=== PATIENT | male | born 1945 | race Caucasian/White ===

== ENCOUNTER 2017-06-20 07:01 | Emergency (ER) | payer MEDICARE ==
--- NOTE | 2017-06-20 07:17 | UC ---
Ear Complaint HPI - HPI Summary HPI Summary: 71 YEAR OLD MALE PRESENTS WITH COMPLAIN OF BILATERAL EAR PAIN/FULLNESS. HE ALSO HAS A ENLARGED MASS ON THE RIGHT SIDE OF HIS NECK AND IS SCHEDULED FOR A CT SCAN. - History of Current Complaint Stated Complaint: EAR ISSUE Time Seen by Provider: 06/20/17 07:12 - Allergies/Home Medications Allergies/Adverse Reactions: Allergies Allergy/AdvReac Type Severity Reaction Status Date / Time No Known Allergies Allergy Verified 12/04/14 09:12 Home Medications: Home Medications Levothyroxine TAB* [Synthroid 100 MCG TAB*] 06/20/17 [History] PMH/Surg Hx/FS Hx/Imm Hx - Surgical History Surgical History: Yes Surgery Procedure, Year, and Place: Rt KNEE - 2 SURGERIES (SECOND SURG WAS A REPLACEMENT) - Social History Alcohol Use: None Substance Use Type: None Amount Used/How Often: ??? X ? When Did the Patient Quit Smoking/Using Tobacco: 1970'S Review of Systems Constitutional: Negative Skin: Negative Eyes: Negative ENT: Ear Ache, Other Respiratory: Negative Cardiovascular: Negative Gastrointestinal: Negative Genitourinary: Negative Motor: Negative Neurovascular: Negative Musculoskeletal: Negative Neurological: Negative Psychological: Negative All Other Systems Reviewed And Are Negative: Yes Physical Exam Triage Information Reviewed: Yes Eye Exam: Normal ENT: Positive: Other: - BILATERAL CERUMEN IMPACTION Dental Exam: Normal Neck exam: Normal Neck: Positive: 1 Respiratory Exam: Normal Cardiovascular Exam: Normal Abdominal Exam: Normal Musculoskeletal Exam: Normal Neurological Exam: Normal Psychological Exam: Normal Skin Exam: Normal Ear Complaint Course/Dx - Differential Dx/Diagnosis Provider Diagnoses: CERUMEN IMPACTION Discharge - Discharge Plan Condition: Stable Disposition: HOME Prescriptions: Neomyc/Polym/HC 1% OTIC SUSP* [Cortisporin Otic Susp 1%*] 4 drop BOTH EARS QID # 1 btl Patient Education Materials: Cerumen Impaction (ED) Referrals: No Primary Care Phys,NOPCP [Primary Care Provider] - If Needed
[2017-06-20 07:18] VITALS: BP 144/88
[2017-06-20] MEDS ORDERED: Docusate LIQ* 100 MG/10 ML UDC PO ONE (07:29)
[2017-06-20] MEDS ORDERED: Carbamide Peroxide 6.5% OTIC* 15 ML BTL BOTH EARS ONE (07:37)
== END 2017-06-20 08:07 | disposition home or self-care (01) ==
LOC: UCEAST 07:01
DX: H61.23 Impacted cerumen, bilateral (principal); Z96.651 Presence of right artificial knee joint; Z87.891 Personal history of nicotine dependence
CPT/HCPCS: 69210; 99213; A9270-GY; G0463

== ENCOUNTER 2018-01-24 12:59 | Inpatient (IN) | payer MEDICARE ==
[2018-01-24] MEDS ORDERED: Ketorolac INJ* 30 MG/ML 1 ML VIAL IV ONE (13:14)
[2018-01-24] MEDS ORDERED: Diltiazem DRIP* 100 MG/100 ML ADDV.BAG IVPB ONE (13:14)
[2018-01-24] MEDS ORDERED: NS 0.9% 1000 ML* 1,000 ML IV ONE (13:14)
[2018-01-24 13:30] LABS: ABS Basophils 0 10^3/ul (0-0.2); ABS Eosinophils 0 10^3/ul (0-0.6); ABS Lymphocytes 0.2 10^3/ul (1.0-4.8); ABS Monocytes 0.3 10^3/ul (0-0.8); ABS Neutrophils 5.6 10^3/ul (1.5-7.7); ABS Nucleated RBC 0 10^3/ul; Eosinophil % 0 % (0-6); Hematocrit 37 % (42-52); Hemoglobin 12.5 g/dl (14.0-18.0); Mean Corpuscular HGB Conc 34 g/dl (31-36); Mean Corpuscular Hemoglobin 30 pg (27-31); Mean Corpuscular Volume 90 fL (80-94); Mean Platelet Volume 8 um3 (7.4-10.4); Nucleated Red Blood Cells % 0.1; Platelet Count 356 10^3/ul (150-450); Red Blood Count 4.12 10^6/ul (4.0-5.4); Red Cell Distribution Width 17 % (10.5-15); White Blood Count 6.1 10^3/ul (3.5-10.8)
[2018-01-24 13:31] LABS: INR 2.93 (0.77-1.02)
--- NOTE | 2018-01-24 13:32 | RAD ---
Indication: Respiratory distress. Shortness of breath. History of head and neck squamous cell carcinoma. Comparison: December 06, 2017 PET/CT. October 08, [address] Technique: Upright AP 1310 hours Report: RIGHT greater than LEFT basilar airspace consolidation without discrete nodules. Negative for volume loss to favor atelectasis. Grossly clear pleural spaces. The heart, pulmonary vasculature, and mediastinal contours are unremarkable. IMPRESSION: RIGHT greater than LEFT basilar airspace consolidation new on the LEFT and similar on the RIGHT to the December 06, 2017 PET/CT. Given history of head and neck malignancy consider aspiration pneumonia.
[2018-01-24 13:34] LABS: EGFR Non-African American 25.2 (>60)
[2018-01-24] MEDS: Diltiazem IV VIAL* 125 MG in NS 0.9% 100 ML* 100 ML IV ONE (14:31)
[2018-01-24] MEDS ORDERED: Piperacillin/Tazobac ADVAN(*) 3.375 GM in NS 0.9% 100 ML* 100 ML IVPB ONE (15:42)
[2018-01-24] MEDS ORDERED: Zosyn per Pharmacy* NOTE FOLLOW UP SCH (16:00)
--- NOTE | 2018-01-24 17:07 | RAD ---
INDICATION: Altered mental status COMPARISON: MRI of the brain dated July 21, 2017 TECHNIQUE: Contiguous axial sections of the brain were obtained from the skull base to the vertex without contrast. FINDINGS: The ventricles, cisterns and sulci are within normal limits. The cooper-white matter differentiation is adequately maintained and there is no sulcal effacement. No significant focal abnormality or mass effect is present. There is no evidence for intracranial hemorrhage. No significant focal osseous abnormality is present. The visualized portion of the paranasal sinuses appear clear. There are bilateral mastoid air cell effusion similar in appearance to the MRI of the brain. IMPRESSION: 1. No CT apparent acute intracranial abnormality. 2. Chronic bilateral mastoid air cell effusions.
--- NOTE | 2018-01-24 19:21 | PN ---
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 Presents obtruded, hypotensive and hypoxic. Subjective: Responding to voice, not in pain. Not able to answer questions. Cancer History: 1. Sq Cell Head and neck - Dx 02/2014 [id number], P16 negative. - Cis/XRT 03/2014, CR by PET - 05/2017 Recurrence floor of mass - 07/2017 - 08/2017 Cetuximab/XRT - 11/2017 Nivolumab 2. RCC. Nephrectomy 01/2016, Stage 1B, grade 1 RCC. Medication: Famotidine (Pepcid Iv*) 20 mg IV DAILY [facility] Hydrocortisone Sodium Succinate (Solu-Cortef*) 100 mg IV Q12H SUKH Diltiazem HCl 125 mg/ Sodium (Chloride) 125 mls @ 10 mls/hr IV ED ONCE ONE; 10 MG/HR PRN Reason: Protocol Stop: 01/25/18 02:29 Last Admin: 01/24/18 14:31 Dose: 10 mls/hr Lactated Ringer's (Lactated Ringers 1000 Ml Bag*) 1,000 mls @ 75 mls/hr IV PER RATE [facility] Last Admin: 01/24/18 17:45 Dose: 75 mls/hr Levothyroxine Sodium (Synthroid Inj*) 37.5 mcg IV DAILY [facility] Pharmacy Consult (Zosyn Per Pharmacy*) 1 note FOLLOW UP .ZOSYN PER PHARMACY [facility] Objective: [] Vital Signs Temp Pulse Resp BP Pulse Ox 96.8 F 110 29 108/73 100 01/24/18 16:30 01/24/18 19:02 01/24/18 19:02 01/24/18 17:47 01/24/18 19:02 HEENT: Edema neck, no discrete mass. High flow mask. Wheezing ant, poor air movement and crackles post RRR S12 + Abd distension, no HSM Ext no edema, warm Neuro- responding go voice, moving ext x 4 CXR - basilar infiltrate Assessment: []Presents hypoxic and non responsive. Etiology of decompensation unclear. He had new infiltrate on PET in November and differential includes aspiration, PE is possible though therapeutic on Coumadin, immune mediated hypophysitis, sepsis from pneumonia or UTI. Plan: []1. Agree with current respiratory support and DNR/DNI. I am unsure if he is currently BENSON malignancy or has residual disease in floor of mouth. 2. US LE 3. Check random Coritsol and will send testosterone, stress dose steroids 4. hydration 5. Carlton catheter 6. Will follow in ICU and will be oncology service on transfer. Dr. Pate, his primary oncologist, to round in am.
[2018-01-24] MEDS: Hydrocortisone INJ* 100 MG VIAL IV SCH (19:45)
--- NOTE | 2018-01-24 20:12 | ED ---
Gilda Nayak Gabriel, scribed for Iam Del Rosario MD on 01/24/18 at 1332 . Respiratory - HPI Summary HPI Summary: This patient is a 72 year old M BIBA to [facility] in respiratory distress. Pt is minimally responsive and only opens his eyes if his name is yelled loudly. EMS reports he has a history of mouth and tongue cancer and there is a concern for pulmonary edema. 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 Hx COPD. Pt was 122/65 on arrival. LEVEL 5 Caveat: HPI limited due to the patient being verbally non responsive. - History of Current Complaint Chief Complaint: EDShortnessOfBreath Stated Complaint: RESPIRATORY DISTRESS Hx Obtained From: Patient Onset/Duration: Still Present Timing: Constant Initial Severity: Severe Current Severity: Severe Associated Signs and Symptoms: Fever - Allergy/Home Medications Allergies/Adverse Reactions: Allergies Allergy/AdvReac Type Severity Reaction Status Date / Time No Known Allergies Allergy Verified 07/19/17 11:39 Home Medications: Home Medications Atropine 1% OPHTH.GABRIEL* 1 drop PO BID PRN 01/24/18 [History Confirmed 01/24/18] Warfarin TAB(*) [Coumadin TAB(*)] 7.5 mg PO .SUTUTHSA 01/24/18 [History Confirmed 01/24/18] PMH/Surg Hx/FS Hx/Imm Hx Endocrine/Hematology History: Reports: Hx Thyroid Disease Denies: Hx Diabetes Cardiovascular History: Reports: Hx Hypertension, Other Cardiovascular Problems/ Disorders - ATRIAL FIBRILLATION Denies: Hx Pacemaker/ICD History: Denies: Hx Renal Disease Musculoskeletal History: Reports: Other Musculoskeletal History - knee surgery Sensory History: Reports: Hx Hearing Aid Denies: Hx Contacts or Glasses Opthamlomology History: Denies: Hx Contacts or Glasses Psychiatric History: Denies: Hx Panic Disorder - Cancer History Cancer Type, Location and Year: TONSIL CANCER - RENAL CELL CARCINOMA. Hx Chemotherapy: Yes Hx Radiation Therapy: Yes - Surgical History Surgery Procedure, Year, and Place: Rt KNEE - 2 SURGERIES (SECOND SURG WAS A REPLACEMENT) W/ A TITANIUM STONEY. 07/08/17 - BIOPSY OF MASS ON NECK - Rt SIDE - MALIGNANT SQUAMOUS CELL Hx Anesthesia Reactions: No Infectious Disease History: Unable to Obtain/Confirm Infectious Disease History: Denies: Hx Clostridium Difficile, Hx Hepatitis, Hx Human Immunodeficiency Virus (HIV), Hx of Known/Suspected MRSA, Hx Shingles, Hx Tuberculosis, Hx Known/ Suspected VRE, Hx Known/Suspected VRSA, History Other Infectious Disease, Traveled Outside the [place] in Last 30 Days - Social History Alcohol Use: Rare Substance Use Type: Reports: None Smoking Status (MU): Never Smoked Tobacco Amount Used/How Often: ??? X ? Have You Smoked in the Last Year: No - Additional Comments History Additional Comments: LEVEL 5 Caveat: exam limited due to the patient being verbally non responsive. Review of Systems - ROS Summary Review of Systems Summary: LEVEL 5 Caveat: ROS limited due to the patient being verbally non responsive. Positive: Fever Positive: Shortness Of Breath, Other - trouble breathing All Other Systems Reviewed And Are Negative: No Physical Exam - Summary Physical Exam Summary: Appearance: The patient is well-nourished Skin: The skin is diaphoretic HEENT: The head is normocephalic and atraumatic. The pupils are equal and reactive. The conjunctivae are clear and without drainage. Nares are patent and without drainage. Mouth reveals moist mucous membranes and the throat is without erythema and exudate. The external ears are intact. The ear canals are patent and without drainage. The tympanic membranes are intact. Neck: the neck is supple with full range of motion and non-tender. There are no carotid bruits. There is no neck vein distension. Respiratory: Left side sounds wet and has crackles. Cardiovascular: tachycardic and irregular There is no murmur or rub auscultated. There is no peripheral edema and pulses are symmetrical and equal. Abdomen: The abdomen is soft There are normal bowel sounds heard in all four quadrants and there is no organomegaly palpated. Musculoskeletal: Extremities are non-tender with full range of motion. There is good capillary refill. There is no peripheral edema or calf tenderness elicited. Neurological: Patient opens eyes when his name is called. Triage Information Reviewed: Yes Vital Signs On Initial Exam: Initial Vitals Temp Pulse Resp BP Pulse Ox 102.2 F 151 38 114/66 92 01/24/18 13:12 01/24/18 13:12 01/24/18 13:12 01/24/18 13:12 01/24/18 13:12 Vital Signs Reviewed: Yes Completion Of Physical Exam Limited Due To: Level 5 Diagnostics - Vital Signs Vital Signs Temp Pulse Resp BP Pulse Ox 01/24/18 13:15 99 38 88 01/24/18 13:14 114/66 01/24/18 13:12 102.2 F 151 38 114/ 92 - Laboratory Lab Results: Lab Results 01/24/18 01/24/18 01/24/18 Range/Units 13:11 13:11 13:11 WBC (3.5-10.8) 10^3/ul RBC (4.0-5.4) 10^6/ul Hgb (14.0-18.0) g/dl Hct (42-52) % MCV (80-94) fL MCH (27-31) pg MCHC (31-36) g/dl RDW (10.5-15) % Plt Count (150-450) 10^3/ul MPV (7.4-10.4) um3 Neut % (Auto) (38-83) % Lymph % (Auto) (25-47) % [place] % (Auto) (0-7) % Eos % (Auto) (0-6) % Baso % (Auto) (0-2) % Absolute Neuts (auto) (1.5-7.7) 10^3/ul Absolute Lymphs (auto) (1.0-4.8) 10^3/ul Absolute Monos (auto) (0-0.8) 10^3/ul Absolute Eos (auto) (0-0.6) 10^3/ul Absolute Basos (auto) (0-0.2) 10^3/ul Absolute Nucleated RBC 10^3/ul Nucleated RBC % INR (Anticoag Therapy) 2.93 H (0.77-1.02) APTT 39.2 H (26.0-36.3) seconds D-Dimer, Quantitative > 1050 H (Less Than 230) ng/mL ABG pH (7.35-7.45) ABG pCO2 (35-45) mmHg ABG pO2 (80-100) mmHg ABG HCO3 (19-31) mmol/L ABG O2 Saturation (95-98) % ABG Base Excess (-2.0-2.0) Sodium 136 (133-145) mmol/L Potassium 4.5 (3.5-5.0) mmol/L Chloride 101 (101-111) mmol/L Carbon Dioxide 27 (22-32) mmol/L Anion Gap 8 (2-11) mmol/L BUN 56 H (6-24) mg/dL Creatinine 2.54 H (0.67-1.17) mg/dL Est GFR ( Amer) 32.4 (>60) Est GFR (Non-Af Amer) 25.2 (>60) BUN/Creatinine Ratio 22.0 H (8-20) Glucose 208 H (70-100) mg/dL Lactic Acid (0.5-2.0) mmol/L Calcium 9.5 (8.6-10.3) mg/dL Total Bilirubin 0.60 (0.2-1.0) mg/dL AST 28 (13-39) U/L ALT 21 (7-52) U/L Alkaline Phosphatase 68 (34-104) U/L Troponin I 0.06 H* (<0.04) ng/mL C-Reactive Protein 335.95 H (< 5.00) mg/L B-Natriuretic Peptide 222 H ( - 100) pg/mL Total Protein 7.4 (6.4-8.9) g/dL Albumin 3.4 (3.2-5.2) g/dL Globulin 4.0 (2-4) g/dL Albumin/Globulin Ratio 0.9 L (1-3) 01/24/18 01/24/18 01/24/18 Range/Units 13:11 13:11 13:40 WBC 6.1 (3.5-10.8) 10^3/ul RBC 4.12 (4.0-5.4) 10^6/ul Hgb 12.5 L (14.0-18.0) g/dl Hct 37 L (42-52) % MCV 90 (80-94) fL MCH 30 (27-31) pg MCHC 34 (31-36) g/dl RDW 17 H (10.5-15) % Plt Count 356 (150-450) 10^3/ul MPV 8 (7.4-10.4) um3 Neut % (Auto) 91.1 H (38-83) % Lymph % (Auto) 4.0 L (25-47) % [place] % (Auto) 4.8 (0-7) % Eos % (Auto) 0 (0-6) % Baso % (Auto) 0.1 (0-2) % Absolute Neuts (auto) 5.6 (1.5-7.7) 10^3/ul Absolute Lymphs (auto) 0.2 L (1.0-4.8) 10^3/ul Absolute Monos (auto) 0.3 (0-0.8) 10^3/ul Absolute Eos (auto) 0 (0-0.6) 10^3/ul Absolute Basos (auto) 0 (0-0.2) 10^3/ul Absolute Nucleated RBC 0 10^3/ul Nucleated RBC % 0.1 INR (Anticoag Therapy) (0.77-1.02) APTT (26.0-36.3) seconds D-Dimer, Quantitative (Less Than 230) ng/mL ABG pH 7.35 (7.35-7.45) ABG pCO2 46 H (35-45) mmHg ABG pO2 143 H (80-100) mmHg ABG HCO3 24.5 (19-31) mmol/L ABG O2 Saturation 99.0 H (95-98) % ABG Base Excess -0.5 (-2.0-2.0) Sodium (133-145) mmol/L Potassium (3.5-5.0) mmol/L Chloride (101-111) mmol/L Carbon Dioxide (22-32) mmol/L Anion Gap (2-11) mmol/L BUN (6-24) mg/dL Creatinine (0.67-1.17) mg/dL Est GFR ( Amer) (>60) Est GFR (Non-Af Amer) (>60) BUN/Creatinine Ratio (8-20) Glucose (70-100) mg/dL Lactic Acid 2.1 H* (0.5-2.0) mmol/L Calcium (8.6-10.3) mg/dL Total Bilirubin (0.2-1.0) mg/dL AST (13-39) U/L ALT (7-52) U/L Alkaline Phosphatase (34-104) U/L Troponin I (<0.04) ng/mL C-Reactive Protein (< 5.00) mg/L B-Natriuretic Peptide ( - 100) pg/mL Total Protein (6.4-8.9) g/dL Albumin (3.2-5.2) g/dL Globulin (2-4) g/dL Albumin/Globulin Ratio (1-3) Result Diagrams: 01/24/18 13:11 01/24/18 13:11 Lab Statement: Any lab studies that have been ordered have been reviewed, and results considered in the medical decision making process. - Radiology CXR Radiology Interpretation Completed By: Radiologist - RIGHT greater than LEFT basilar airspace consolidation new on the LEFT and similar on the RIGHT to the December 06, 2017 PET/CT. Given history of head and neck malignancy consider aspiration pneumonia. ED physician has reviewed this radiology report. - EKG 1248 Cardiac Rate: Tachycardia EKG Rhythm: Atrial Fibrillation - at 144 BPM EKG Interpretation: RVR with baseline wander Disposition - Course Course Of Treatment: Mr Perdomo presented in extremis on C-Pap with SPO2 in the 70's and in an irregular heart rate in the 160's. We could not get any history from the patient. He was immediately placed on BiPap and his SPO2 gradually climbed into the 90's. His lungs were generally clear. He was stuporous and would open his eyes to loud voice but not answer questions. His CXR was read as possible aspiration and his d-dimer came back quite high. I suspect PE but he has CRF and won't tolerate a CTA. He is being admitted to the ICU by Dr. Quintanilla. He was started on a cardizem drip for his A-Fib. - Diagnoses Provider Diagnoses: Respiratory insufficiency, Atrial fibrillation with rapid ventricular response - Critical Care Time Critical Care Time: 30-74 min Discharge - Discharge Plan Condition: Critical Disposition: ADMITTED TO [facility] Consult Consult: 1115 We discussed patient care with Dr. Green and he has agreed to come see the patient. 1524 We discussed patient care with Dr. Quintanilla, ICU and he recommend a CTA if it can be done and he accepted the patient for admission into the ICU. 15:30 We discussed patient care with Dr. Matias and they recommended doing a US of his LE. The documentation as recorded by the Gilda banegas Gabriel accurately reflects the service I personally performed and the decisions made by me, Iam Del Rosario MD.
--- NOTE | 2018-01-24 20:19 | RAD ---
INDICATION: Head and neck cancer. Dyspnea. Positive d-dimer. Assess for DVT. Anticoagulated. COMPARISON: No relevant prior exams available on the [facility] PACS for comparison. TECHNIQUE: Ortiz scale, color Doppler, and spectral analysis of the deep veins of the BILATERAL lower extremities. Vessel compression, phasicity, and augmentation assessed. REPORT: Mildly limited exam due to patient motion. The RIGHT common femoral, great saphenous, profunda femoral, femoral, and popliteal veins are patent. The paired posterior tibial and peroneal calf veins could only be visualized with color Doppler however they demonstrate flow and appear grossly patent. The LEFT common femoral, great saphenous, profunda femoral, femoral, popliteal veins are patent. The paired posterior tibial and peroneal calf veins could only be visualized with color Doppler however they demonstrate flow and appear grossly patent. IMPRESSION: No evidence for RIGHT or LEFT lower extremity DVT.
--- NOTE | 2018-01-24 21:14 | HP ---
ADMISSION HISTORY AND PHYSICAL: DATE OF ADMISSION: 01/24/18 REASON FOR ADMISSION: Respiratory failure and change in mental status. HISTORY OF PRESENT ILLNESS: This patient is a 72-year-old white male with a history of head and neck cancer (squamous cell carcinoma), status post radiation and chemotherapy (most recent chemotherapy last week, under the supervision of Dr. Pate)) who was brought to the emergency room today because of a change in mental status and difficulty breathing. The patient has a history of atrial fibrillation (Rx Coumadin). In the ED, the patient was obtunded and hypoxic, and was placed on BiPAP with marked improvement in O2 saturation. Chest x-ray showed bibasilar infiltrates much more pronounced on the right than left and D-dimer was elevated (> 1000). INR was in the vicinity of 3. The patient was subsequently admitted with a diagnosis of respiratory failure, possibly secondary to aspiration pneumonia. Pulmonary embolism could not be ruled out on admission because the patient had an elevated creatinine and was not a candidate for an MR angiography. The renal insufficiency is apparently longstanding. OUTPATIENT MEDICATIONS: 1. Coumadin 5 mg Wednesday, Wednesday, and Wednesday and 7.5 mg Wednesday, , and Wednesday. 2. Levothyroxine 75 mcg daily. 3. Oxycodone 5 mg p.o. q.6 hours p.r.n. pain. 4. Atropine 1% ophthalmic solution 1 drop b.i.d. p.r.n. ALLERGIES: There are no apparent drug allergies. FAMILY HISTORY: The patient lives with a significant other and has 1 daughter. There is no history of alcohol or illicit drug abuse. REVIEW OF SYSTEMS: Noncontributory. PHYSICAL EXAMINATION GENERAL: The patient did not respond to verbal commands or deep pain and was receiving BiPAP at the time of the examination. VITAL SIGNS: Temp 102.2, heart rate 114 and irregular, blood pressure 90/60, O2 sats 98%, respiratory rate 30 breaths per minute. HEENT: Oropharynx patent. Pupils midposition and reactive. No facial asymmetry. NECK: Supple. LUNGS: Clear to auscultation. There were some fine crackles at the right base. CARDIAC: Revealed an irregular rhythm with no murmurs, rubs, or gallops. ABDOMEN: Nondistended. Bowel sounds are present. EXTREMITIES: Warm, not cyanotic and not edematous. NEUROLOGIC: Pupils and corneal reflexes were intact and the patient moved all extremities in response to deep pain. ADMISSION LABORATORY DATA/DIAGNOSTIC STUDIES: Hemoglobin 12.5, white count 6.1 , platelets 356,000. Chemistry: Sodium, potassium, and chloride normal. BUN 56, creatinine 2.5, glucose 208. Lactic 2.1. C-reactive protein 335. BNP 222. Albumin was 3.4. Troponin was 0.06. Blood gas on BiPAP revealed a pO2 of 143, pCO2 of 46, pH of 7.35. INR was 2.93. PTT 39.2. D-dimer was greater than 1050. Chest x-ray as mentioned. EKG revealed atrial fibrillation without acute ST or T wave changes. There is low voltage throughout. IMPRESSION: Major problems include head and neck CA, respiratory failure, atrial fibrillation, and renal insufficiency. Possible etiologies for respiratory failure include aspiration pneumonia and acute pulmonary embolism. Since the patient is not a candidate for an MRA to rule out pulmonary embolism, I will order an ultrasound of the legs. (The patient is adequately anticoagulated, which makes DVT less likely). The patient's obtundation is also worrisome - possible sources are dehydration (oral intake has been poor) and [employer] bleed. MANAGEMENT PLAN: The patient to be admitted to the intensive care unit for antibiotics (Zosyn), BiPAP, and hydration. Will also get a venous ultrasound of the lower extremities,a and obtain a head CT. The patient is DNR/DNI (per the daughter and significant other). I have also spoken with oncology service (Dr. Han) about the patient's ICU admission, and they will evaluate the patient today. CRITICAL CARE TIME: 60 minutes. [id number]/[facility] #: [id number] [facility] HOSPITALLynne
[2018-01-25] MEDS ORDERED: ZOSYN 3.375 GM Q12H per EXTENDED INFUSION IVPB SCH ×2
[2018-01-25] MEDS: Diltiazem IV VIAL* 125 MG in NS 0.9% 100 ML* 100 ML IV ONE (01:57)
[2018-01-25] MEDS: Hydrocortisone INJ* 100 MG VIAL IV SCH ×2 (06:31→17:13)
[2018-01-25] MEDS: Famotidine IV* 10 MG/ML 2 ML (20 mg) IV SCH (07:54)
[2018-01-25] MEDS: Levothyroxine INJ* 100 MCG/5 ML VIAL IV SCH (07:57)
[2018-01-25] MEDS ORDERED: LORazepam INJ* 2 MG/ML 1 ML VIAL ONE ×2 (08:18→13:36)
[2018-01-25] MEDS ORDERED: LORazepam INJ* 2 MG/ML 1 ML VIAL IV PUSH ONE ×2 (08:26→14:30)
--- NOTE | 2018-01-25 08:49 | PN ---
Progress Note - Progress Note Date of Service: 12/25/17 Note: Blood cultures (2) from yesterday growing Strep pneumoniae. Patient is currently on Zosyn - will switch to ceftriaxone.
[2018-01-25] MEDS ORDERED: cefTRIAXone(*) 1 GM in NS 0.9% 50 ML* 50 ML IVPB SCH (09:00)
[2018-01-25] MEDS ORDERED: Famotidine IV * 20 MG in NS 0.9% 100 ML* 100 ML IVPB SCH (09:00)
[2018-01-25] MEDS ORDERED: Diltiazem DRIP* 100 MG/100 ML ADDV.BAG IVPB SCH (10:00)
--- NOTE | 2018-01-25 14:47 | PN ---
Date of Service: 01/25/18 Critical Care Services: Blood cultures growing pneumococcus, and antibiotic coverage changed to ceftriaxone. Because of continued unresponsiveness, a lumbar puncture was performed at the bedside - CSF was clear yellow on gross inspection - samples sent for Gram's stain culture, cell count, cytology, glucose and protein. Vital Signs: Temp Pulse Resp BP SpO2 FiO2 98.1 F 99 36 112/67 95 60 On Vapotherm (high-flow O2) Physical Exam: Gen:Unresponsive to verbal commands and to deeep pain. HEENT: Difficulty swallowing saliva. Lungs: Crackles right base Extremities: No cyanosis or edema Fluid Balance (Past 24 Hours): 01/25/18 06:59 Intake Total 2335 Output Total 950 Balance +1385 Weight 153 lb Intake: IV Fluids 1968 LR 1958 NS (0.9%) 10 IVPB 231 LR 115 NS (0.9%) 116 Medicated IV 136 GEN - Diltiazem/Cardizem 136 Output: Carlton 950 Labs: 01/24/18 01/24/18 01/25/18 17:05 21:05 00:45 ABG pH 7.41 ABG pCO2 36 ABG pO2 284 ABG HCO3 23.8 ABG O2 Saturation 99.2 ABG Base Excess -1.4 Troponin I 0.17 H* 0.12 H* Cortisol 295.95 Studies: CSF studies (as mentioned previously) Nutrition: NPO Impression: Bacteremic pneumococcal pneumonia - meningitis seems unlikely (but cannot be ruled out) based on the gross appearance of the CSF. Mental status continues to be poor despite rehydration. Problem protecting airways from oral secretions does not appear to be reversible. Plan: 1. Continue ceftriaxone 1 gm q 12h. Add azithromycin. 2. Await CSF results 3. If patient does not improve with antibiotics and fluids, then I will speak with family about end-of-life decisions Critical Care Time: 35 minutes (not including time for lumbar puncture).
[2018-01-25] MEDS ORDERED: cefTRIAXone(*) 2 GM in NS 0.9% 50 ML* 50 ML IVPB SCH (15:18)
[2018-01-25] MEDS ORDERED: cefTRIAXone(*) 1 GM in NS 0.9% 50 ML* 50 ML IVPB ONE (16:00)
[2018-01-25] MEDS ORDERED: Vancomycin per Pharmacy* NOTE FOLLOW UP PRN (17:29)
--- NOTE | 2018-01-25 17:31 | PN ---
Progress Note - Progress Note Date of Service: 01/25/18 Note: CSF studies consistent with gram-positive meningitis (has intracellular gram- positive cocci on gram stain), most likely pneumococcus - therefore, will change Rx to ceftriaxone - 2 gm q12 h, vancomycin (dose adjust to achieve trough of 20 mcg/ml) and dexamethasone (10 mg IV q 6H x 43 days). Will also ask ID service to evaluate. Patients family (daughter and healthcare proxy) informed of current Dx.
[2018-01-25] MEDS: Dexamethasone IV* 4 MG/ML 1 ML (4 MG) IV SLOW PU SCH (17:40)
[2018-01-25] MEDS ORDERED: Vancomycin 1500 MG IV - x ONCE IVPB ONE ×2 (18:00)
[2018-01-25] MEDS: Diltiazem IV VIAL* 125 MG in NS 0.9% 100 ML* 100 ML IV SCH (18:03)
[2018-01-26] MEDS: Dexamethasone IV* 4 MG/ML 1 ML (4 MG) IV SLOW PU SCH ×5 (00:24→23:44)
[2018-01-26] MEDS: NS 0.9% IVPB SCH ×2 (04:31→16:31)
[2018-01-26] MEDS: CEFTRIAXONE IVPB SCH ×2 (04:31→16:31)
[2018-01-26] MEDS ORDERED: Vancomycin Random Level* NOTE FOLLOW UP ONE (06:00)
[2018-01-26 06:13] LABS: Hematocrit 28 % (42-52); Hemoglobin 9.2 g/dl (14.0-18.0); Mean Corpuscular HGB Conc 33 g/dl (31-36); Mean Corpuscular Hemoglobin 30 pg (27-31); Mean Corpuscular Volume 90 fL (80-94); Mean Platelet Volume 8 um3 (7.4-10.4); Platelet Count 195 10^3/ul (150-450); Red Blood Count 3.09 10^6/ul (4.0-5.4); Red Cell Distribution Width 17 % (10.5-15); White Blood Count 14.4 10^3/ul (3.5-10.8)
[2018-01-26 06:27] LABS: EGFR Non-African American 17.7 (>60)
[2018-01-26 06:50] LABS: Vancomycin Trough 13.8 mcg/mL
[2018-01-26] MEDS: Diltiazem IV VIAL* 125 MG in NS 0.9% 100 ML* 100 ML IV SCH ×2 (07:34→12:13)
[2018-01-26] MEDS: Famotidine IV* 10 MG/ML 2 ML (20 mg) IV SCH (07:50)
[2018-01-26] MEDS: Levothyroxine INJ* 100 MCG/5 ML VIAL IV SCH (07:53)
--- NOTE | 2018-01-26 08:21 | RAD ---
HISTORY: Pneumonia, respiratory failure COMPARISONS: January 24, 2018 VIEWS: 1: frontal portable view of the chest at 6:15 AM FINDINGS: LINES AND TUBES: None. CARDIOMEDIASTINAL SILHOUETTE: The cardiomediastinal silhouette is normal for portable technique. PLEURA: There is blunting of right costophrenic angle. LUNG PARENCHYMA: There is patchy multifocal confluent alveolar desiccation of the lower lung beasley bilaterally. This has progressed compared to the previous examination. ABDOMEN: The upper abdomen is clear. There is no subphrenic gas. BONES AND SOFT TISSUES: No bone or soft tissue abnormalities are noted. IMPRESSION: PROGRESSIVE BIBASILAR CONSOLIDATION. SMALL RIGHT PLEURAL EFFUSION.
--- NOTE | 2018-01-26 09:33 | PRO ---
PROCEDURE REPORT: DATE OF PROCEDURE: 01/25/18 PROCEDURE: Lumbar puncture. HISTORY: The patient is a 72-year-old white male with head and neck cancer, who was admitted on with obtundation and probable pneumonia. Blood cultures grew pneumococcus, and because of the change in mental status and the possibility of a pneumococcal meningitis, a lumbar puncture was p erformed at the bedside. After appropriately prepping the patient a 25-gauge LP needle was inserted into the L5-S1 interspace without difficulty and approximately 4 cc of clear yellow fluid was removed without difficulty. Fluid will be sent for Gram stain culture, cell count, cytology, glucose, and p rotein. There were no apparent complications to the procedure. The patient's health care proxy was present at the time of the procedure and agreed to such. [id number]/[facility] #: [id number]
[2018-01-26] MEDS: Heparin VIAL(*) 5000 UNITS/ML VIAL (FIVE THOUSAND) SUBCUT SCH ×2 (12:47→21:10)
--- NOTE | 2018-01-26 16:52 | RAD ---
INDICATION: PICC line placement COMPARISON: January 26, 2018 TECHNIQUE: An AP portable view obtained at 1520 hours is submitted. FINDINGS: Bones/Soft Tissues: There are no acute bony findings. There is a right-sided PICC catheter terminating in the superior vena cava Cardiomediastinal: The heart is top normal in size. Lungs: Bilateral infiltrates, unchanged. Pleura: Bilateral pleural effusions right greater than left without significant change. Other: None IMPRESSION: THE PICC CATHETER IS POSITIONED IN THE SUPERIOR VENA CAVA. BILATERAL INFILTRATES AND EFFUSIONS WITHOUT SIGNIFICANT CHANGE.
--- NOTE | 2018-01-26 17:51 | PN ---
Date of Service: 01/26/18 Critical Care Services: Overall clinical status unchanged except for steady rise in serum creatinine ( to 3.25 today). ID service following - they have d/c'd the vancomycin because organism is cephalosporin sensitive. AQlso, a PICC catheter was placed today for TPN (patient unlikely to tolerate a feeding tube) Vital Signs: Temp Pulse Resp BP SpO2 FiO2 97.9 F 103 26 107/78 96 40 Physical Exam: Gen:Unresponsive Lungs: Occasional rhonchi Cardiac: Irreg heart rate Abdomen: Not distended Extremities: No cyanosis Fluid Balance (Past 24 Hours): 01/26/18 06:59 Intake Total 4346.4 Output Total 650 Balance 3696.4 Weight 164 lb Intake: IV Fluids 3800 LR 3388 NS (0.9%) 412 IVPB 430 LR NS (0.9%) 430 Medicated IV 116.4 GEN - Diltiazem/Cardizem 116.4 Oral 0 Output: Carlton 650 Labs: 01/26/18 01/26/18 05:59 05:59 WBC 14.4 RBC 3.09 L Hgb 9.2 L Hct 28 L MCV 90 MCH 30 MCHC 33 RDW 17 Plt Count 195 MPV 8 Sodium 141 Potassium 5.0 Chloride 109 Carbon Dioxide 23 Anion Gap 9 BUN 77 Creatinine 3.45 Glucose 90 Calcium 8.4 L TSH 18.44 Fluid Cell Count Rvw By Vancomycin Trough 13.8 Nutrition: TPN (begin tomorrow) Impression: 1. No signs of improvement for the pneumococcal meningitis, and there is now evidence of progressive renal insufficiency (? sepsis-related) 2. Elevated TSH indicates inadequate thyroid replacement. Plan: 1. Continue present Rx for pneumococcal meningitis. 2. Start TPN tomorrow. 3. Increase synthroid dose to 50 mcg IV daily. Prognosis poor, and family is aware. Critical Care Time: 35 minutes
--- NOTE | 2018-01-26 18:20 | CONS ---
CONSULTATION REPORT: DATE OF CONSULT: 01/26/18 REQUESTING PHYSICIAN: Dr. Quintanilla. CONSULTING SERVICE: Infectious Disease. REASON FOR CONSULTATION: Pneumococcal meningitis. IMPRESSION: 1. Encephalopathy present on admission due to pneumococcal meningitis with bacteremia. 2. Severe sepsis present on admission. 3. Squamous cell cancer of the tonsil, treated with radiation and recently chemotherapy. RECOMMENDATIONS: Agree with current antibiotics of ceftriaxone 2 g twice a day and vancomycin goal trough 15 to 20 for the possibility of an isolate that is intermediately sensitive to cephalosporins. If the organism is cephalosporin sensitive, then vancomycin can be stopped. Agree with IV corticosteroid course. It will be few days before we see if there is going to be any improvement in his mental status. HISTORY OF PRESENT ILLNESS: This is a 72-year-old male who is undergoing treatment with chemotherapy for tonsillar cancer, admitted with change in mental status. He cannot provide any history, which was obtained aside from discussion with Dr. Quintanilla and review of the medical records. He came to the hospital yesterday by ambulance, found to be obtunded and admitted to the ICU by Dr. Quintanilla, started him on Zosyn and supported with oxygen because of his mental status changes. He obtained a lumbar puncture. That showed 80 white cells, 72% neutrophils, glucose of 0, protein of 382. Gram stain showed Gram- positive cocci. Blood cultures of 4/4, Streptococcus pneumoniae, no sensitivity data back yet. He had a fever of 39 degrees on admission, has not been febrile since then. He is on vancomycin and ceftriaxone. No rash or diarrhea per the nurse. PAST MEDICAL HISTORY: 1. Squamous cell cancer of the tonsil, treated with radiation and recently chemotherapy. 2. Atrial fibrillation. 3. Hypothyroidism. MEDICATIONS: 1. Ceftriaxone 2 g IV every 12 hours. 2. Dexamethasone 10 mg daily. 3. Diltiazem IV every 12 hours. 4. Famotidine IV. 5. Levothyroxine injection. 6. Vancomycin. ALLERGIES: No known drug allergies. FAMILY HISTORY: Unobtainable. REVIEW OF SYSTEMS: Unobtainable. SOCIAL HISTORY: He lives with his significant other, otherwise unobtainable. PHYSICAL EXAMINATION: Vital Signs: Temperature 37, heart rate 90, respiratory rate 26, blood pressure 104/74, oxygen saturation 96%, FiO2 of 40%. In general , does not appear uncomfortable or in distress. Neurologic: He is not arousable. Does not withdraw to painful stimuli. The nurse said he opened his eyes earlier briefly. HEENT: There is no conjunctival hemorrhage. Oropharynx without lesions. Neck: There is no mass. There is erythema of the right neck without crepitus or fluctuance. There is some fullness. Lymph Nodes: There is no cervical, supraclavicular, inguinal, axillary, or epitrochlear lymphadenopathy. Heart is irregularly irregular without murmurs. Lungs are clear to auscultation bilaterally. Abdomen: Soft, nontender, nondistended. There are bowel sounds present. Skin: There is no rash or splinter hemorrhages. Musculoskeletal: There is no joint synovitis. LABORATORY DATA: White blood cell count 14, hemoglobin 9, platelets 195. Creatinine 3.5. Troponin 0.12. Lactic acid 2.1. TSH 19. CRP 340. Please see impressions and recommendations as outlined above, which I have discussed with Dr. Quintanilla. Thank you for asking me to see Mr. Perdomo in consultation. [id number]/[facility] #: [id number] MAGAN
[2018-01-26] MEDS: Metoprolol Tartrate IV* 1 MG/ML 5 ML VIAL IV PRN (18:35)
[2018-01-27] MEDS: CEFTRIAXONE IVPB SCH ×2 (03:50→16:29)
[2018-01-27] MEDS: NS 0.9% IVPB SCH ×2 (03:50→16:29)
[2018-01-27] MEDS: Metoprolol Tartrate IV* 1 MG/ML 5 ML VIAL IV PRN ×2 (03:50→20:20)
[2018-01-27] MEDS: Dexamethasone IV* 4 MG/ML 1 ML (4 MG) IV SLOW PU SCH ×4 (05:14→23:44)
[2018-01-27 05:57] LABS: Hematocrit 30 % (42-52); Hemoglobin 9.9 g/dl (14.0-18.0); Mean Corpuscular HGB Conc 33 g/dl (31-36); Mean Corpuscular Hemoglobin 29 pg (27-31); Mean Corpuscular Volume 89 fL (80-94); Mean Platelet Volume 8 um3 (7.4-10.4); Platelet Count 232 10^3/ul (150-450); Red Blood Count 3.38 10^6/ul (4.0-5.4); Red Cell Distribution Width 18 % (10.5-15); White Blood Count 15.5 10^3/ul (3.5-10.8)
[2018-01-27 06:08] LABS: EGFR Non-African American 19.4 (>60)
[2018-01-27] MEDS: Heparin VIAL(*) 5000 UNITS/ML VIAL (FIVE THOUSAND) SUBCUT SCH ×2 (10:33→20:20)
[2018-01-27] MEDS: Famotidine IV* 10 MG/ML 2 ML (20 mg) IV SCH (10:34)
--- NOTE | 2018-01-27 10:47 | PN ---
Subjective Date of Service: 01/27/18 Interval History: Patient seen and examined. Unresponsive, unable to obtain ROS. Chart and records reviewed in detail. Objective Active Medications: Dexamethasone Sodium Phosphate (Decadron Iv*) 10 mg IV SLOW PU Q6H [facility] Stop: 01/28/18 18:00 Last Admin: 01/27/18 05:14 Dose: 10 mg Famotidine (Pepcid Iv*) 20 mg IV DAILY [facility] Last Admin: 01/27/18 10:34 Dose: 20 mg Heparin Sodium (Porcine) (Heparin Vial(*)) 5,000 units SUBCUT Q12HR [facility] Last Admin: 01/27/18 10:33 Dose: 5,000 units Heparin Sodium (Porcine) (Heparin Flush Picc/Ml/Cvc(*)) 1 - 3 ml FLUSH 0600, 1800 [facility] PRN Reason: Protocol Last Admin: 01/27/18 05:14 Dose: 2 ml Ceftriaxone Sodium 2 gm/ (Sodium Chloride) 100 mls @ 200 mls/hr IVPB Q12H [facility] Last Admin: 01/27/18 03:50 Dose: 200 mls/hr Lactated Ringer's (Lactated Ringers 1000 Ml Bag*) 1,000 mls @ 50 mls/hr IV PER RATE [facility] Last Admin: 01/27/18 10:34 Dose: 50 mls/hr Levothyroxine Sodium (Synthroid Inj*) 50 mcg IV DAILY [facility] Metoprolol Tartrate (Lopressor Iv*) 5 mg IV Q4H PRN PRN Reason: TACHYCARDIA Last Admin: 01/27/18 03:50 Dose: 5 mg Vital Signs - 8 hr 01/27/18 03:36 Temperature 97.1 F Pulse Rate 106 Respiratory 24 Rate Blood Pressure 110/68 (mmHg) O2 Sat by Pulse 94 Oximetry Oxygen Devices in Use Now: Nasal Cannula Appearance: non-responsive, purposeless movements Ears/Nose/Mouth/Throat: Mucous Membranes Moist Neck: Trachea Midline Respiratory: Symmetrical Chest Expansion and Respiratory Effort - course breath sounds throughout Cardiovascular: NL Sounds; No Murmurs; No JVD - irregular Abdominal: NL Sounds; No Tenderness; No Distention Extremities: No Edema Skin: No Rash or Ulcers Neurological: - - obtunded, decreased LOC even to tactile stimuli Nutrition: - - NPO, pending TPN Result Diagrams: 01/27/18 05:00 01/27/18 05:00 Additional Lab and Data: Microbiology and Other Data: Microbiology 01/25/18 14:00 CSF Gram Stain (Tube 3) - Final Cerebral Spinal Fluid CSF Culture - Preliminary No Growth Day 2 01/24/18 21:40 Nasal Screen MRSA (PCR)(CATALINO) - Final Nasal Mrsa Not Detected Diagnostic Imaging: Patient Name: PRIYANK LAST Medical Record#: [id number] Ordering Physician: Jeffrey Quintanilla MD Acct.#: [id number] : 1945 Age: 72 Sex: M Location: [facility] Exam Date: 01/26/18 1611 ADM Status: ADM IN Order Information: CHEST AP PORTABLE Accession Number: [id number] CPT: 42604 INDICATION: PICC line placement COMPARISON: January 26, 2018 TECHNIQUE: An AP portable view obtained at 1520 hours is submitted. FINDINGS: Bones/Soft Tissues: There are no acute bony findings. There is a right-sided PICC catheter terminating in the superior vena cava Cardiomediastinal: The heart is top normal in size. Lungs: Bilateral infiltrates, unchanged. Pleura: Bilateral pleural effusions right greater than left without significant change. Other: None IMPRESSION: THE PICC CATHETER IS POSITIONED IN THE SUPERIOR VENA CAVA. BILATERAL INFILTRATES AND EFFUSIONS WITHOUT SIGNIFICANT CHANGE. <Electronically signed by Cholo Clarke MD in OV> 01/26/181647 Dictated By: Cholo Clarke MD Dictated Date/Time: 01/26/181647 Transcribed Date/Time: 01/26/181646 Copy to: Assess/Plan/Problems-Billing Assessment: This is a 72 year old male patient with history of SCC head and neck and past hx of RCC that presents hypoxic with decreased LOC, LP shows pneumococcal meningitis. - Patient Problems (1) Pneumococcal meningitis Code(s): G00.1 - PNEUMOCOCCAL MENINGITIS SNOMED Code(s): 48923377 Comment: - Currently unresponsive - PICC inserted for TPN - ID following - Continue ceftriaxone BID (2) Squamous cell carcinoma of head and neck Code(s): C76.0 - MALIGNANT NEOPLASM OF HEAD, FACE AND NECK SNOMED Code(s): 095956045 Comment: - On salvage nivolumab - Appreciate recs from heme-onc given severity of current condition (3) History of renal cell carcinoma Code(s): Z85.528 - PERSONAL HISTORY OF OTHER MALIGNANT NEOPLASM OF KIDNEY SNOMED Code(s): 746466859 Comment: - S/P neprectomy in 2016 - Rising creatinine (4) Elevated troponin Code(s): R74.8 - ABNORMAL LEVELS OF OTHER SERUM ENZYMES SNOMED Code(s): 866828311 Comment: - Likely demand from acute infection, immunosupression - Not a candidate for stress testing in the setting of acute illness (5) Hypothyroidism Code(s): E03.9 - HYPOTHYROIDISM, UNSPECIFIED SNOMED Code(s): 10979190 Comment: - Continue synthroid IV Status and Disposition: Remain inpatient on IV atbx and see if LOC improves. DNR/DNI, may need to have talk with family about comfort measures. Will d/w heme-onc
[2018-01-27] MEDS: Levothyroxine INJ* 100 MCG/5 ML VIAL IV SCH (12:39)
[2018-01-28] MEDS: CEFTRIAXONE IVPB SCH ×2 (03:11→15:41)
[2018-01-28] MEDS: NS 0.9% IVPB SCH ×2 (03:11→15:41)
[2018-01-28] MEDS: Dexamethasone IV* 4 MG/ML 1 ML (4 MG) IV SLOW PU SCH ×3 (05:22→17:10)
[2018-01-28 05:33] LABS: Hematocrit 28 % (42-52); Hemoglobin 9.4 g/dl (14.0-18.0); Mean Corpuscular HGB Conc 33 g/dl (31-36); Mean Corpuscular Hemoglobin 30 pg (27-31); Mean Corpuscular Volume 89 fL (80-94); Mean Platelet Volume 8 um3 (7.4-10.4); Platelet Count 197 10^3/ul (150-450); Red Blood Count 3.15 10^6/ul (4.0-5.4); Red Cell Distribution Width 18 % (10.5-15); White Blood Count 9.9 10^3/ul (3.5-10.8)
[2018-01-28 05:47] LABS: EGFR Non-African American 24.6 (>60)
[2018-01-28 06:03] LABS: ABS Basophils 0 10^3/ul (0-0.2); ABS Eosinophils 0 10^3/ul (0-0.6); ABS Lymphocytes 0.3 10^3/ul (1.0-4.8); ABS Monocytes 0.1 10^3/ul (0-0.8); ABS Neutrophils 9.4 10^3/ul (1.5-7.7); ABS Nucleated RBC 0 10^3/ul; Eosinophil % 0 % (0-6); Lymphocyte % 3.2 % (25-47); Nucleated Red Blood Cells % 0
[2018-01-28] MEDS: Levothyroxine INJ* 100 MCG/5 ML VIAL IV SCH (08:08)
[2018-01-28] MEDS: Famotidine IV* 10 MG/ML 2 ML (20 mg) IV SCH (08:08)
[2018-01-28] MEDS: Heparin VIAL(*) 5000 UNITS/ML VIAL (FIVE THOUSAND) SUBCUT SCH ×2 (08:08→21:25)
[2018-01-28] MEDS: Metoprolol Tartrate IV* 1 MG/ML 5 ML VIAL IV PRN (10:40)
--- NOTE | 2018-01-28 12:40 | PN ---
Progress Note - Progress Note Date of Service: 01/28/18 SOAP: Subjective: CC: Encephalopathy HPI: 72 year old man with immunotherapy for SCC of tonsil admitted obtunded. No fever, rash, or diarrhea per RN. He cannot answer questions. Objective: Vital Signs Temp 36.3 C 01/28/18 11:16 Pulse 102 01/28/18 11:16 Resp 18 01/28/18 11:16 BP 118/69 01/28/18 11:16 Pulse Ox 95 01/28/18 11:16 Intake & Output 01/27/18 01/28/18 01/28/18 18:59 06:59 18:59 Intake Total 0 0 Output Total 100 350 Balance -100 -350 Intake: Oral 0 0 Output: Carlton 100 350 Other: # Bowel Movements 1 1 Estimated Stool Amount Medium Medium Gen: no distress Neuro: opens eyes briefly to touch; does not follow commands or answer questions HEENT: MMD Neck: no rigidity Heart:RRR no murmur Lungs:CTA BL Abd:+BS NTND soft Skin: no rash MSK: no spine tenderness Laboratory Results - last 24 hr 01/28/18 01/28/18 05:15 05:15 WBC 9.9 RBC 3.15 L Hgb 9.4 L Hct 28 L MCV 89 MCH 30 MCHC 33 RDW 18 H Plt Count 197 MPV 8 Neut % (Auto) 95.5 H Lymph % (Auto) 3.2 L Jun[place] % (Auto) 1.1 Eos % (Auto) 0 Baso % (Auto) 0.2 Absolute Neuts (auto) 9.4 H Absolute Lymphs (auto) 0.3 L Absolute Monos (auto) 0.1 Absolute Eos (auto) 0 Absolute Basos (auto) 0 Absolute Nucleated RBC 0 Nucleated RBC % 0 Sodium 139 Potassium 4.5 Chloride 109 Carbon Dioxide 15 L Anion Gap 15 H BUN 87 H Creatinine 2.59 H Est GFR ( Amer) 31.7 Est GFR (Non-Af Amer) 24.6 BUN/Creatinine Ratio 33.6 H Glucose 105 H Calcium 7.4 L Total Bilirubin 0.20 AST 12 L ALT 12 Alkaline Phosphatase 56 Total Protein 3.9 L Albumin 1.6 L Globulin 2.3 Albumin/Globulin Ratio 0.7 L Microbiology 01/25/18 14:00 CSF Gram Stain (Tube 3) - Final Cerebral Spinal Fluid CSF Culture - Preliminary No Growth Day 3 Microbiology 01/25/18 14:00 CSF Gram Stain (Tube 3) - Final Cerebral Spinal Fluid CSF Culture - Preliminary No Growth Day 3 01/24/18 13:26 Aerobic Blood Culture - Final Blood Venous Streptococcus Pneumoniae Anaerobic Blood Culture - Final Streptococcus Pneumoniae 01/24/18 14:55 Aerobic Blood Culture - Final Blood Venous Streptococcus Pneumoniae Anaerobic Blood Culture - Final Streptococcus Pneumoniae 01/24/18 21:40 Nasal Screen MRSA (PCR)(CATALINO) - Final Nasal Mrsa Not Detected Assessment: 1. Encephalopathy, slightly improved 2. Invasive pneumococcal infection with meningitis and question of parameningeal focus though no tendernesss I think epidural collection less likely; no brain abscess or sinus disease on brain CT 3. Squamous cell cancer of tonsil on immunotherapy Plan: 1. corticosteroids day 01/31; ceftriaxone 2 gm IV Q12hrs
[2018-01-29] MEDS: NS 0.9% IVPB SCH (04:01)
[2018-01-29] MEDS: CEFTRIAXONE IVPB SCH (04:01)
[2018-01-29] MEDS: Famotidine IV* 10 MG/ML 2 ML (20 mg) IV SCH (08:29)
[2018-01-29] MEDS: Levothyroxine INJ* 100 MCG/5 ML VIAL IV SCH (08:29)
[2018-01-29] MEDS: Heparin VIAL(*) 5000 UNITS/ML VIAL (FIVE THOUSAND) SUBCUT SCH (08:29)
--- NOTE | 2018-01-29 08:49 | PN ---
Progress Note - Progress Note Date of Service: 01/29/18 SOAP: Subjective: decline in respiratory status this am. moaning. on 10L face mask. Objective: Vital Signs Temp Pulse Resp BP Pulse Ox 97.4 F 122 20 118/86 94 01/29/18 07:42 01/29/18 07:42 01/29/18 07:42 01/29/18 07:42 01/29/18 07:42 unresponsive moaning diffuse rhonchi blood in nares tachycardic Famotidine (Pepcid Iv*) 20 mg IV DAILY [facility] Last Admin: 01/29/18 08:29 Dose: 20 mg Heparin Sodium (Porcine) (Heparin Vial(*)) 5,000 units SUBCUT Q12HR [facility] Last Admin: 01/29/18 08:29 Dose: 5,000 units Heparin Sodium (Porcine) (Heparin Flush Picc/Ml/Cvc(*)) 1 - 3 ml FLUSH 0600, 1800 [facility] PRN Reason: Protocol Last Admin: 01/29/18 04:22 Dose: Not Given Ceftriaxone Sodium 2 gm/ (Sodium Chloride) 100 mls @ 200 mls/hr IVPB Q12H [facility] Last Admin: 01/29/18 04:01 Dose: 200 mls/hr Lactated Ringer's (Lactated Ringers 1000 Ml Bag*) 1,000 mls @ 50 mls/hr IV PER RATE [facility] Last Admin: 01/29/18 04:06 Dose: 50 mls/hr Levothyroxine Sodium (Synthroid Inj*) 50 mcg IV DAILY [facility] Last Admin: 01/29/18 08:29 Dose: 50 mcg Metoprolol Tartrate (Lopressor Iv*) 5 mg IV Q4H PRN PRN Reason: TACHYCARDIA Last Admin: 01/28/18 10:40 Dose: 5 mg Morphine Sulfate (Morphine Inj (Syringe)*) 2 mg IV Q2HR PRN PRN Reason: PAIN/INFLAMMATION Assessment: 72 yo M w H+N cancer on immunotherapy admitted with strep meningitis. He is clinically declining today. I have left a message for his HCP Hailey Gibson, but per the conversation with Dr. Pate yesterday she would not want aggressive measures. Therefore I have started morphine for respiratory distress. I will discuss with her transitioning to comfort measures today given the clinical decline, but will keep antibiotics on board for now pending this conversation.
[2018-01-29] MEDS: LORazepam INJ* 2 MG/ML 1 ML VIAL IV PUSH PRN (10:28)
[2018-01-29] MEDS: Atropine 1% (ORAL/SL)* 15 ML BTL SL PRN (15:42)
[2018-01-30 03:38] VITALS: BP 123/94
[2018-01-30] MEDS: Morphine INJ* 2 MG/ML 1 ML CARPUJECT IV PRN ×3 (05:20→13:06)
--- NOTE | 2018-01-30 08:28 | PN ---
Progress Note - Progress Note Date of Service: 01/30/18 SOAP: Subjective: unresponsive but clearly appears more comfortable this am Objective: Vital Signs Temp Pulse Resp BP Pulse Ox 97.3 F 95 24 123/94 93 01/29/18 23:27 01/29/18 23:27 01/30/18 05:20 01/29/18 23:27 01/29/18 23:27 unresponsive but will move and moan to positioning more comfortable appearing today Atropine Sulfate (Atropine 1% (Oral/Sl)*) 2 drop SL Q2H PRN PRN Reason: DISCOMFORT Last Admin: 01/29/18 15:42 Dose: 2 drop Heparin Sodium (Porcine) (Heparin Flush Picc/Ml/Cvc(*)) 1 - 3 ml FLUSH 0600, 1800 [facility] PRN Reason: Protocol Last Admin: 01/30/18 05:21 Dose: 3 ml Lorazepam (Ativan Inj*) 1 mg IV PUSH Q2HR PRN PRN Reason: AGITATION Last Admin: 01/29/18 10:28 Dose: 1 mg Morphine Sulfate (Morphine Inj (Syringe)*) 2 mg IV Q2H PRN PRN Reason: PAIN/INFLAMMATION Last Admin: 01/30/18 05:20 Dose: 2 mg Assessment: 72 yo M w H+N cancer on palliative immunotherapy admitted with strep meningitis and bacteremia, now comfort measures only. Plan: -more comfortable today -cont current plan
[2018-01-30] MEDS: Atropine 1% (ORAL/SL)* 15 ML BTL SL PRN ×2 (13:23→15:28)
[2018-01-30] MEDS: LORazepam INJ* 2 MG/ML 1 ML VIAL IV PUSH PRN (13:23)
[2018-01-30] MEDS ORDERED: Morphine INJ* 4 MG/ML 1 ML CARPUJECT IV PRN ×2 (14:00→14:55)
[2018-01-30] MEDS ORDERED: LORazepam INJ* 2 MG/ML 1 ML VIAL IV PUSH PRN (14:50)
--- NOTE | 2018-01-30 17:27 | PN ---
Progress Note - Progress Note Date of Service: 01/30/18 Note: Arrived to pronounce pt's . Pt was noted without spontaneous respirations, skin cool to touch. On exam pt was unresponsive to all stimuli,no heart beat was noted, pupils nonreactive b/l. time of 17:03 on 01/30/18, family and attending physician aware.
== END 2018-01-30 17:03 | disposition expired | DRG 871 ==
LOC: ED 12:59 → ICU 16:18 → MEDTELE 01-26 20:03
PROVIDERS: ADMIT Internal Medicine Critical Care Medicine; ATTEND Internal Medicine Hematology & Oncology
PROC: 5A09357 Assistance with Respiratory Ventilation, Less than 24 Consecutive Hours, Continuous Positive Airway Pressure (ICD-10-PCS; 2018-01-24)
PROC: 0T9B70Z Drainage of Bladder with Drainage Device, Via Natural or Artificial Opening (ICD-10-PCS; 2018-01-24)
PROC: 009U3ZX Drainage of Spinal Canal, Percutaneous Approach, Diagnostic (ICD-10-PCS; 2018-01-25)
PROC: 02HV33Z Insertion of Infusion Device into Superior Vena Cava, Percutaneous Approach (ICD-10-PCS; principal; 2018-01-26)
DX: A40.3 Sepsis due to Streptococcus pneumoniae (principal); G00.1 Pneumococcal meningitis; J96.91 Respiratory failure, unspecified with hypoxia; R65.20 Severe sepsis without septic shock; G93.40 Encephalopathy, unspecified; I48.91 Unspecified atrial fibrillation; C09.9 Malignant neoplasm of tonsil, unspecified; B95.7 Other staphylococcus as the cause of diseases classified elsewhere; C76.0 Malignant neoplasm of head, face and neck; I10 Essential (primary) hypertension; E07.9 Disorder of thyroid, unspecified; H91.90 Unspecified hearing loss, unspecified ear; Z96.651 Presence of right artificial knee joint; E03.9 Hypothyroidism, unspecified; Z66 Do not resuscitate; N28.9 Disorder of kidney and ureter, unspecified; R74.8 Abnormal levels of other serum enzymes; Z51.5 Encounter for palliative care; R04.0 Epistaxis; Z97.4 Presence of external hearing-aid; Z90.5 Acquired absence of kidney; Z85.528 Personal history of other malignant neoplasm of kidney
CPT/HCPCS: 36415; 36600; 70450; 71045; 80048; 80053; 80202; 82248; 82533; 82803; 82945; 83605; 83880; 84157; 84443; 84484; 85025; 85027; 85379; 85610; 85730; 86140; 87040; 87070; 87077; 87184; 87186; 87205; 87641; 88112; 89051; 93005; 93970; 94760; 96413; 99213; 99232; 99233; 99285; C1751; G0463; J0696; J1100; J1644; J1720; J1885; J2060; J2270; J2543; J3370; J3490; J9299